=== PATIENT | male | born 1960 | race Caucasian/White ===

== ENCOUNTER 2018-09-08 10:10 | Emergency (ER) | payer MEDICAID ==
[2018-09-08] MEDS ORDERED: Naproxen 550 mg Tab PO STA (11:31)
[2018-09-08] MEDS ORDERED: Naproxen 550 mg Tab PO ONE (11:38)
[2018-09-08 12:11] LABS: SQUAMOUS EPITHIAL < 1 /hpf (0-5); URINE BILIRUBIN NEGATIVE (NEGATIVE); URINE BLOOD 1+ (NEGATIVE); URINE CLARITY Clear (Clear); URINE COLOR Yellow (YELLOW); URINE GLUCOSE (UA) NORMAL (Normal); URINE LEUKOCYTE ESTERASE NEG Leu/uL (Negative); URINE PROTEIN NEGATIVE (NEGATIVE)
[2018-09-08] MEDS ORDERED: Sodium Chloride 0.9% 1,000 ML IV ONE (12:16)
[2018-09-08 12:32] VITALS: RESP 20
[2018-09-08 12:48] LABS: BASO % 0.8 % (0.0-2.0); EOS # 0.1 K/uL (0.0-0.7); EOS % 2.5 % (0.0-4.0); HEMOGLOBIN 13.2 g/dL (12.0-18.0); LYMPH % 38.4 % (20.0-40.0); MEAN CORPUSCULAR HEMOGLOBIN 30.7 pg (27.0-31.0); MEAN CORPUSCULAR HGB CONC 34.4 g/dL (33.0-37.0); MEAN PLATELET VOLUME 8.5 fL (7.2-11.7); MONO # 0.5 K/uL (0.0-0.8); NEUT # 2.5 K/uL (1.8-7.0); NEUT % 48.3 % (50.0-75.0); NRBC % 0.2 % (0.0-2.0); RBC 4.28 Mil/uL (4.40-5.90); RED CELL DISTRIBUTION WIDTH 14.3 % (11.5-14.5); WHITE BLOOD COUNT 5.2 K/uL (4.8-10.8)
[2018-09-08 12:49] LABS: MEAN CELL VOLUME 89.3 fL (80.0-94.0)
[2018-09-08 13:01] LABS: ALB/GLOB RATIO 0.9 (1.0-2.1); ALBUMIN 3.9 g/dL (3.5-5.0); ALT/SGPT 53 U/L (21-72); AST/SGOT 59 U/L (17-59); BLOOD UREA NITROGEN 15 mg/dL (9-20); CALCIUM 8.9 mg/dl (8.6-10.4); GFR NON-AFRICAN AMERICAN > 60
[2018-09-08] MEDS ORDERED: Sodium Chloride 0.9% 1,000 ML ONE (13:11)
--- NOTE | 2018-09-08 13:32 | CT ---
PROCEDURE: CT Abdomen and Pelvis without Oral or IV contrast. HISTORY: RIGHT LOW BACK, RLQ PAIN, R/O KIDNEY STONE COMPARISON: None available. TECHNIQUE: Contiguous axial images of the abdomen and pelvis. No oral or IV contrast administered. Coronal and Sagittal reformats generated and reviewed. Radiation dose: Total exam DLP = 1067.05 mGy-cm. This CT exam was performed using one or more of the following dose reduction techniques: Automated exposure control, adjustment of the mA and/or kV according to patient size, and/or use of iterative reconstruction technique. FINDINGS: There is limited evaluation of the solid organs without the administration of IV contrast. LOWER THORAX: No visible consolidation, pleural effusion, or pneumothorax. LIVER: Hepatomegaly. Nodular hepatic contour. GALLBLADDER AND BILE DUCTS: Cholelithiasis. Gallbladder wall calcification. PANCREAS: Unremarkable unenhanced appearance. SPLEEN: Splenomegaly. ADRENALS: Unremarkable unenhanced appearance. KIDNEYS AND URETERS: No hydronephrosis or obstructing renal calculus. 11 mm left lower pole calculus. BLADDER: The urinary bladder appears unremarkable. REPRODUCTIVE: Unremarkable. APPENDIX: The appendix appears within normal limits of caliber. No secondary signs of acute appendicitis. BOWEL: The stomach is nondistended. Lack of oral contrast limits evaluation for bowel pathology. The bowel loops appear within normal limits of caliber without evidence of intestinal obstruction. PERITONEUM: No significant free fluid. No definite free air. LYMPH NODES: No bulky lymphadenopathy identified. VASCULATURE: Mild atherosclerotic calcification of the aorta present. No aortic aneurysm. BONES: Mild degenerative changes. OTHER FINDINGS: Fat containing right inguinal hernia. IMPRESSION: Cholelithiasis. 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 Nonobstructing 11 mm left lower pole renal calculus. Hepatomegaly. Nodular hepatic contour. Correlate clinically for cirrhosis. Splenomegaly. Fat containing right inguinal hernia.
[2018-09-08 13:59] VITALS: PULSE 54
--- NOTE | 2018-09-08 15:06 | C.PDOC ---
History Of Present Illness 58 year old male presents to the ED for evaluation of right-sided lower back pain that has been radiating to his anterior abdomen for 3 days. Patient states his pain is constant. He denies associated fever, chills, vomiting, diarrhea, dysuria, hematuria. Time Seen by Provider: 09/08/18 10:42 Chief Complaint (Nursing): Back Pain History Per: Patient History/Exam Limitations: no limitations Onset/Duration Of Symptoms: Days (3) Current Symptoms Are (Timing): Still Present Quality Of Discomfort: "Pain" Previous Symptoms: Back Pain Associated Symptoms: denies: Incontinence, New Weakness, New Numbness Additional History Per: Patient Past Medical History Reviewed: Historical Data, Nursing Documentation, Vital Signs Vital Signs: Last Vital Signs Temp 98.9 F 09/08/18 13:58 Pulse 54 L 09/08/18 13:58 Resp 20 09/08/18 13:58 BP 120/73 09/08/18 13:58 Pulse Ox 99 09/08/18 13:58 - Medical History PMH: No Chronic Diseases Denies: Diabetes Surgical History: No Surg Hx Family History: States: Unknown Family Hx - Social History Hx Tobacco Use: Yes Hx Alcohol Use: Yes (denies) Hx Substance Use: Yes - Immunization History Hx Tetanus Toxoid Vaccination: No Hx Influenza Vaccination: No Hx Pneumococcal Vaccination: No Review Of Systems Constitutional: Negative for: Fever, Chills Gastrointestinal: Positive for: Abdominal Pain (anterior ). Negative for: Vomiting, Diarrhea Genitourinary: Negative for: Dysuria, Hematuria Musculoskeletal: Positive for: Back Pain (right-sided ) Physical Exam - Physical Exam Appears: Non-toxic, No Acute Distress, Other (comfortable ) Skin: Normal Color, Warm, Dry Head: Atraumatic, Normacephalic Eye(s): bilateral: Normal Inspection Oral Mucosa: Moist Neck: Supple Chest: Symmetrical, No Deformity, No Tenderness Cardiovascular: Rhythm Regular, No Murmur Respiratory: Normal Breath Sounds, No Rales, No Rhonchi, No Wheezing Gastrointestinal/Abdominal: Soft, No Tenderness, No Guarding, No Rebound Back: Paraspinal Tenderness (right-sided, lumbar ) Extremity: Normal ROM, Capillary Refill (less than 2 seconds ) Neurological/Psych: Oriented x3, Normal Speech, Normal Cognition Gait: Steady ED Course And Treatment - Laboratory Results Result Diagrams: 09/08/18 12:35 09/08/18 12:35 O2 Sat by Pulse Oximetry: 99 (on RA) Pulse Ox Interpretation: Normal - CT Scan/US CT A/P Other Rad Studies (CT/US): Read By Radiologist, Radiology Report Reviewed CT/US Interpretation: PROCEDURE: CT Abdomen and Pelvis without Oral or IV contrast. HISTORY: RIGHT LOW BACK, RLQ PAIN, R/O KIDNEY STONE. COMPARISON: None available. TECHNIQUE: Contiguous axial images of the abdomen and pelvis. No oral or IV contrast administered. Coronal and Sagittal reformats generated an d reviewed. Radiation dose: Total exam DLP = 1067.05 mGy-cm. This CT exam was performed using one or more of the following dose reduction techniques: Automated exposure control, adjustment of the mA and/or kV according to patient size, and/or use of iterative reconstruction technique. FINDINGS: There is limited evaluation of the solid organs without the administration of IV contrast. LOWER THORAX: No visible consolidation, pleural effusion, or pneumothorax. LIVER: Hepatomegaly. Nodular hepatic contour. GALLBLADDER AND BILE DUCTS: Cholelithiasis. Gallbladder wall calcification. PANCREAS: Unremarkable unenhanced appearance. SPLEEN: Splenomegaly. ADRENALS: Unremarkable unenhanced appearance. KIDNEYS AND URETERS: No hydronephrosis or obstructing renal calculus. 11 mm left lower pole calculus. BLADDER: The urinary bladder appears unremarkable. REPRODUCTIVE: Unremarkable. APPENDIX: The appendix appears within normal limits of caliber. No secondary signs of acute appendicitis. BOWEL: The stomach is nondistended. Lack of oral contrast limits evaluation for bowel pathology. The bowel loops appear within normal limits of caliber without evidence of intestinal obstruction. PERITONEUM: No significant free fluid. No definite free air. LYMPH NODES: No bulky lymphadenopathy identified. VASCULATURE: Mild atherosclerotic calcification of the aorta present. No aortic aneurysm. BONES: Mild degenerative changes. OTHER FINDINGS: Fat containing right inguinal hernia. IMPRESSION: Cholelithiasis. 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 Nonobstructing 11 mm left lower pole renal calculus. Hepatomegaly. Nodular hepatic contour. Correlate clinically for cirrhosis. Splenomegaly. Fat containing right inguinal hernia. Progress Note: Bloodwork, urinalysis, CT A/P ordered and reviewed. Naproxen PO, Flexeril PO and IV Fluids given. Disposition Counseled Patient/Family Regarding: Studies Performed, Diagnosis, Need For F ollowup, Rx Given - Disposition Referrals: [facility] [Outside] Disposition: HOME/ ROUTINE Disposition Time: 15:05 Condition: STABLE Additional Instructions: FOLLOW UP WITH YOUR DOCTOR OR CLINIC IN 1-2 DAYS USE MEDICATIONS NEEDED RETURN TO EMERGENCY ROOM IF SYMPTOMS WORSEN Prescriptions: Cyclobenzaprine [Flexeril] 10 mg PO BID PRN #15 tab PRN Reason: Muscle Spasm Naproxen 375 mg PO BID PRN #20 tablet PRN Reason: pain Instructions: Low Back Pain (DC) Forms: [email or web address] (Indonesian) Print Language: KINYARWANDA - POA Present On Arrival: None - Clinical Impression Clinical Impression: Low back pain, Gallstones, Hepatomegaly, Splenomegaly - Scribe Statement The provider has reviewed the documentation as recorded by the Scribe (rTi Jurado) Provider Attestation: All medical record entries made by the Scribe were at my direction and personally dictated by me. I have reviewed the chart and agree that the record accurately reflects my personal performance of the history, physical exam, medical decision making, and the department course for this patient. I have also personally directed, reviewed, and agree with the discharge instructions and disposition.
[2018-09-08 15:29] VITALS: BP 131/79; TEMP 98.2
[2018-09-08 23:19] VITALS: O2SAT 99
== END 2018-09-08 15:32 | disposition home or self-care (01) ==
LOC: C.ER 10:10
DX: K80.80 Other cholelithiasis without obstruction (principal); R16.2 Hepatomegaly with splenomegaly, not elsewhere classified; M54.5 Low back pain
CPT/HCPCS: 74176; 80053; 81001; 85025; 96360; 99284; J7030

== ENCOUNTER 2018-11-13 11:34 | Emergency (ER) | payer MEDICAID ==
[2018-11-13 11:55] VITALS: O2SAT 100
[2018-11-13] MEDS ORDERED: Sodium Chloride 0.9% 1,000 ML IV ONE (13:50)
[2018-11-13 13:51] LABS: SQUAMOUS EPITHIAL 5 /hpf (0-5); URINE BACTERIA RARE (<OCC); URINE BILIRUBIN NEGATIVE (NEGATIVE); URINE BLOOD 3+ (NEGATIVE); URINE CLARITY Hazy (Clear); URINE COLOR Yellow (YELLOW); URINE GLUCOSE (UA) NORMAL (Normal); URINE LEUKOCYTE ESTERASE NEG Leu/uL (Negative); URINE PROTEIN NEGATIVE (NEGATIVE)
--- NOTE | 2018-11-13 13:54 | C.PDOC ---
History Of Present Illness 58 year old male presents to the ED for evaluation of left flank pain for 3 days. The patient states he noticed blood in his urine. Denies fever, chills, nausea, vomiting, diarrhea, and any other associated symptoms. Chief Complaint (Nursing): Male Genitourinary History Per: Patient History/Exam Limitations: no limitations Onset/Duration Of Symptoms: Days (3), Gradual Pain Scale Rating Of: 6 Quality Of Discomfort: Dull, Aching Associated Symptoms: denies: Fever, Chills, Nausea, Vomiting, Diarrhea Alleviating Factors: None Recent travel outside of the [place]: No Past Medical History Reviewed: Historical Data, Nursing Documentation, Vital Signs Vital Signs: Last Vital Signs Temp 98.3 F 11/13/18 11:51 Pulse 81 11/13/18 11:51 Resp 18 11/13/18 11:51 BP 163/82 H 11/13/18 11:51 Pulse Ox 100 11/13/18 11:51 - Medical History PMH: No Chronic Diseases Denies: Diabetes Family History: States: Unknown Family Hx Denies: IA, Hypertension - Social History Hx Tobacco Use: Yes Hx Alcohol Use: Yes (denies) Hx Substance Use: Yes - Immunization History Hx Tetanus Toxoid Vaccination: No Hx Influenza Vaccination: No Hx Pneumococcal Vaccination: No Review Of Systems Except As Marked, All Systems Reviewed And Found Negative. Constitutional: Negative for: Fever Eyes: Negative for: Pain ENT: Negative for: Ear Pain Cardiovascular: Negative for: Chest Pain Respiratory: Negative for: Cough Gastrointestinal: Positive for: Abdominal Pain Genitourinary: Positive for: Hematuria Musculoskeletal: Negative for: Neck Pain Neurological: Negative for: Weakness Physical Exam - Physical Exam Appears: Well, Non-toxic Skin: Normal Color, Warm Head: Atraumatic, Normacephalic Eye(s): bilateral: Normal Inspection, PERRL, EOMI Nose: Normal Oral Mucosa: Moist Tongue: Normal Appearing Lips: Normal Appearing Throat: Normal Neck: Normal, Normal ROM Lymphatic: Deferred Chest: Symmetrical Cardiovascular: Rhythm Regular Respiratory: Normal Breath Sounds, No Rales, No Rhonchi, No Wheezing Gastrointestinal/Abdominal: Soft, Tenderness (Left flank CVA tenderness) Back: CVA Tenderness Extremity: Normal ROM Extremity: Bilateral: Atraumatic Pulses: Left Carotid: Normal, Right Carotid: Normal Neurological/Psych: Oriented x3, Normal Speech, Normal Cognition Gait: Steady ED Course And Treatment - Laboratory Results Result Diagrams: 11/13/18 14:05 11/13/18 14:05 O2 Sat by Pulse Oximetry: 100 (RA) Pulse Ox Interpretation: Normal - CT Scan/US CT ABD & Pelvis Other Rad Studies (CT/US): Read By Radiologist CT/US Interpretation: FINDINGS: LOWER THORAX: Unremarkable. LIVER: Nodular hepatic contour. No gross lesion or ductal dilatation. GALLBLADDER AND BILE DUCTS: Depending cholelithiasis. Gallbladder wall calcification. PANCREAS: Unremarkable. No gross lesion or ductal dilatation. SPLEEN: Stable splenomegaly. ADRENALS: Unremarkable. No mass. KIDNEYS AND URETERS: 11 mm obstructive left ureteropelvic junction calculus causing mild hydronephrosis. No solid mass. VASCULATURE: Unremarkable. No aortic aneurysm. No aortic atherosclerotic calcification or mural plaque present. BOWEL: Unremarkable. No obstruction. No gross mural thickening. APPENDIX: No findings to suggest acute appendicitis. PERITONEUM: Moderate right fat containing inguinal hernia also containing loop of nonobstructive bowel. No free fluid. No free air. LYMPH NODES: Unremarkable. No enlarged lymph nodes. BLADDER: Unremarkable. REPROD UCTIVE: Unremarkable. BONES: No acute fracture. OTHER FINDINGS: None. IMPRESSION: Obstructive 11 mm left ureteropelvic junction calculus causing mild hydronephrosis. Additional findings as above. Reassessment Condition: Improved (pain resolved) Medical Decision Making Medical Decision Making: Initial plan: -CT ABD & Pelvis w/o PO or IV Contrast -Blood sent -Urinalysis -Toradol Progress/Update: 3:13pm : Urologist sales operations coordinator, Dr. Jeffery attempted to contact, left message on cell phone voicemail. 3:23pm : Discussed case with Dr. Jeffery who recommended labs for him in his office on thursday. Patient discharged on flomax and pain medication. Disposition Discussed With : Timur Jeffery Doctor Will See Patient In The: Office Counseled Patient/Family Regarding: Studies Performed, Diagnosis, Need For Followup, Rx Given - Disposition Referrals: Timur Jeffery MD [Staff Provider] - Disposition: HOME/ ROUTINE Disposition Time: 15:29 Condition: STABLE Additional Instructions: call Dr Latia Ding cell [phone] for follow up on Thursday. Prescriptions: Ketorolac Tromethamine [Toradol] 0 mg PO TID #9 tab Ondansetron ODT [Zofran ODT] 4 mg PO TID #12 odt oxyCODONE/Acetaminophen [Percocet 5/325 mg Tab] 1 ea PO TID #9 tab Tamsulosin HCl [Flomax] 0.4 mg PO DAILY #14 cap.er.24h Instructions: Renal Colic Forms: [facility] (British), Gen Discharge Inst Tunisian, General Discharge Instructions - POA Present On Arrival: None - Clinical Impression Clinical Impression: Renal colic on left side - Scribe Statement The provider has reviewed the documentation as recorded by the Scribe (Lian Andrea) Provider Attestation: All medical record entries made by the Scribe were at my direction and personally dictated by me. I have reviewed the chart and agree that the record accurately reflects my personal performance of the history, physical exam, medical decision making, and the department course for this patient. I have also personally directed, reviewed, and agree with the discharge instructions and disposition.
[2018-11-13 14:12] LABS: BASO # 0.1 K/uL (0.0-0.2); EOS # 0.1 K/uL (0.0-0.7); EOS % 1.1 % (0.0-4.0); LYMPH # 1.5 K/uL (1.0-4.3); LYMPH % 22.5 % (20.0-40.0); MEAN CORPUSCULAR HEMOGLOBIN 31.3 pg (27.0-31.0); MEAN PLATELET VOLUME 8.7 fL (7.2-11.7); MONO # 0.7 K/uL (0.0-0.8); MONO % 10.5 % (0.0-10.0); NEUT # 4.2 K/uL (1.8-7.0); NEUT % 64.9 % (50.0-75.0); NRBC % 0.1 % (0.0-2.0); RBC 4.47 Mil/uL (4.40-5.90); RED CELL DISTRIBUTION WIDTH 14.4 % (11.5-14.5); WHITE BLOOD COUNT 6.5 K/uL (4.8-10.8)
[2018-11-13 14:22] LABS: ALBUMIN 4.1 g/dL (3.5-5.0); ALT/SGPT 58 U/L (21-72); AST/SGOT 74 U/L (17-59); BLOOD UREA NITROGEN 23 mg/dL (9-20); CALCIUM 8.5 mg/dl (8.6-10.4); GFR NON-AFRICAN AMERICAN > 60; LIPASE 58 U/L (23-300)
--- NOTE | 2018-11-13 15:05 | CT ---
Date of service: 11/13/2018 PROCEDURE: CT Abdomen and Pelvis without intravenous contrast HISTORY: abd pain COMPARISON: CT scan of the abdomen pelvis dated 09/08/2018. TECHNIQUE: Contiguous images were obtained from the domes of the diaphragms to the upper thighs without the administration of intravenous contrast. Oral contrast was not administered. Radiation dose: Total exam DLP = 1098.21 mGy-cm. This CT exam was performed using one or more of the following dose reduction techniques: Automated exposure control, adjustment of the mA and/or kV according to patient size, and/or use of iterative reconstruction technique. FINDINGS: LOWER THORAX: Unremarkable. LIVER: Nodular hepatic contour. No gross lesion or ductal dilatation. GALLBLADDER AND BILE DUCTS: Depending cholelithiasis. Gallbladder wall calcification. PANCREAS: Unremarkable. No gross lesion or ductal dilatation. SPLEEN: Stable splenomegaly ADRENALS: Unremarkable. No mass. KIDNEYS AND URETERS: 11 mm obstructive left ureteropelvic junction calculus causing mild hydronephrosis. No solid mass. VASCULATURE: Unremarkable. No aortic aneurysm. No aortic atherosclerotic calcification or mural plaque present. BOWEL: Unremarkable. No obstruction. No gross mural thickening. APPENDIX: No findings to suggest acute appendicitis. PERITONEUM: Moderate right fat containing inguinal hernia also containing loop of nonobstructive bowel. No free fluid. No free air. LYMPH NODES: Unremarkable. No enlarged lymph nodes. BLADDER: Unremarkable. REPRODUCTIVE: Unremarkable. BONES: No acute fracture. OTHER FINDINGS: None. IMPRESSION: Obstructive 11 mm left ureteropelvic junction calculus causing mild hydronephrosis. Additional findings as above.
[2018-11-13 16:02] VITALS: BP 118/73; PULSE 77; RESP 20; TEMP 98
== END 2018-11-13 16:06 | disposition home or self-care (01) ==
LOC: C.ER 11:34
DX: N13.2 Hydronephrosis with renal and ureteral calculous obstruction (principal)
CPT/HCPCS: 74176; 80053; 81001; 83690; 85025; 96361; 96374; 99285; J1885; J7030

== ENCOUNTER 2019-02-16 08:51 | Observation (INO) | payer MEDICAID ==
[2019-02-16 09:40] LABS: URINE BILIRUBIN NEGATIVE (NEGATIVE); URINE BLOOD 3+ (NEGATIVE); URINE CLARITY Hazy (Clear); URINE COLOR Amber (YELLOW); URINE GLUCOSE (UA) NORMAL (Normal); URINE LEUKOCYTE ESTERASE 1+ Leu/uL (Negative); URINE PROTEIN 2+ mg/dL (NEGATIVE); URINE UROBILINOGEN NORMAL mg/dL (0.2-1.0)
[2019-02-16] MEDS ORDERED: Sodium Chloride 0.9% 1,000 ML IV ONE (10:05)
[2019-02-16] MEDS ORDERED: Sodium Chloride 0.9% 1,000 ML ONE (10:19)
[2019-02-16 10:21] LABS: BASO % 0.2 % (0.0-2.0); EOS # 0.1 K/uL (0.0-0.7); EOS % 2.4 % (0.0-4.0); HEMOGLOBIN 13.1 g/dL (12.0-18.0); LYMPH # 1.9 K/uL (1.0-4.3); LYMPH % 40.1 % (20.0-40.0); MEAN CORPUSCULAR HEMOGLOBIN 30.2 pg (27.0-31.0); MEAN CORPUSCULAR HGB CONC 34.1 g/dL (33.0-37.0); MONO # 0.5 K/uL (0.0-0.8); MONO % 9.7 % (0.0-10.0); NEUT # 2.2 K/uL (1.8-7.0); NEUT % 47.6 % (50.0-75.0); RBC 4.35 Mil/uL (4.40-5.90); RED CELL DISTRIBUTION WIDTH 13.6 % (11.5-14.5); WHITE BLOOD COUNT 4.7 K/uL (4.8-10.8)
[2019-02-16 10:23] LABS: MEAN CELL VOLUME 88.6 fL (80.0-94.0)
[2019-02-16 10:28] LABS: ALB/GLOB RATIO 1.1 (1.0-2.1); ALBUMIN 4.3 g/dL (3.5-5.0); ALT/SGPT 43 U/L (21-72); AST/SGOT 53 U/L (17-59); BLOOD UREA NITROGEN 18 mg/dL (9-20); CALCIUM 8.9 mg/dl (8.6-10.4); GFR NON-AFRICAN AMERICAN > 60
--- NOTE | 2019-02-16 11:39 | CT ---
Date of service: 02/16/2019 PROCEDURE: CT Abdomen and Pelvis without intravenous contrast HISTORY: hematuria with flank pain - h/o kidney stones COMPARISON: Abdomen pelvis CT without contrast 11/13/2018. TECHNIQUE: Helical CT of the abdomen and pelvis was performed without oral or intravenous contrast as per referring physician request. Coronal and sagittal reformats were generated.. Radiation dose: Total exam DLP = 1396.3 mGy-cm. This CT exam was performed using one or more of the following dose reduction techniques: Automated exposure control, adjustment of the mA and/or kV according to patient size, and/or use of iterative reconstruction technique. FINDINGS: LOWER THORAX: Incidental upper limits of normal dilatation of the ascending thoracic aorta up to 3.9 cm with the aortic root measuring 3.5 cm. No infiltrate, pleural or pericardial effusion identified. LIVER: Nodular patent contour reiterated, suspicious for cirrhosis. No gross mass identified in this unenhanced exam. GALLBLADDER AND BILE DUCTS: Distended porcelain gallbladder again identified with numerous calculi layering in the dependent portion of the fundus and neck. No pericholecystic fluid collection appreciable. PANCREAS: Unremarkable. No gross lesion or ductal dilatation. SPLEEN: Splenomegaly reiterated up to 17.3 cm once again, no gross interval change. ADRENALS: Unremarkable. No mass. KIDNEYS AND URETERS: Persistent mild hydronephrosis appreciated now with proximal to mid left moderate hydroureter caused by the same 11 mm obstructing calculus now identified more distally, at the approximate S1 sacral there nonspecific mild dilatation of the distal ureteral segment as well though no ureteral calculus is seen associated. This may be a function of normal peristalsis. Clinically correlate further. Borderline left perinephric changes. Subtle left periureteral changes are identified. No right hydronephrosis or hydroureter. No right-sided radiodense urolithiasis identified nor additional left-sided radiodense urolithiasis. No definitive contour abnormality to suggest parenchymal mass bilaterally. VASCULATURE: Unremarkable. No aortic aneurysm. No aortic atherosclerotic calcification or mural plaque present. BOWEL: Unremarkable. No obstruction. No gross mural thickening. APPENDIX: Unremarkable. Normal appendix. PERITONEUM: Unremarkable. No free fluid. No free air. LYMPH NODES: Unremarkable. No enlarged lymph nodes. BLADDER: Limited urinary bladder distention is appreciated with bladder otherwise unremarkable. REPRODUCTIVE: Unremarkable. BONES: No acute fracture. OTHER FINDINGS: None. IMPRESSION: Prior 11 mm left UPJ calculus is now identified at the distal left ureter at the approximate S1 sacral level with persistent mild left hydronephrosis and interval moderate left hydroureter. Periureteral reactive change are identified but are minimal at perinephric space. Mild dilatation of the distal left ureter is appreciated after the calculus potentially is a function of normal peristalsis though this is indeterminate. No additional radiodense urolithiasis involving the left ureter with urinary bladder mildly distended but otherwise unremarkable. Unremarkable, stable appearing right kidney. Intramural gallbladder calcifications are reiterated with gallbladder distension, suggestive of porcelain gallbladder. Numerous calculi are identified in the dependent gallbladder including the neck. Stable appearance overall.
--- NOTE | 2019-02-16 13:22 | CP.PCM.HP ---
<Andrew Noriega - Last Filed: 02/16/19 15:11> History of Present Illness - History of Present Illness History of Present Illness: CC: Hematuria HPI: Patient is a 58 year old male with no known medical history (as per patient), however as per EMR, he does have hx of hepatitis C and Heroin use (last use was 5 years ago). Patient presents to the ED with complaints of gross hematuria that has been ongoing for 3-4 days with left flank patient that started yesterday. Patient states that he noted left flank pain yesterday that worsens with movement and mildly alleviated with advil. Also, patient reports lower abdominal discomfort that is exacerbated with urination. Patient states that he took a pill that he was prescribed back in October last night and this morning; patient does not recall the name of the pill. Patient denies any symptoms of fever, chills, nausea, vomiting, shortness of breath, chest pain, palpitations or hematochezia. Patient was seen in the ED for similar complaints in October and was discharged with a referral to urology, Dr. Timur weinberg Code Status: Full code PMD: None PMHx: As per EMR, hepatitis C positive PSHx: Denies FHx: - Mother: DM, HTN ( 10 years ago) - Father: Colon cancer, ; last year) Medications: Methadone 65mg PO daily; at [facility], Allergies: NKDA Social Hx: Lives alone, works part-time at a car shop. Admits to tobacco use > 20years (1/2PPD), heroin use for 10 years (via IV; few bags per day; last use 5 years ago); former use of ETOH Present on Admission - Present on Admission Any Indicators Present on Admission: No Review of Systems - Constitutional Constitutional: Headache. absent: Chills, Fever - EENT Eyes: Blurred Vision, Change in Vision Nose/Mouth/Throat: absent: Nasal Discharge - Cardiovascular Cardiovascular: absent: Chest Pain, Chest Pain at Rest, Dyspnea, Palpitations - Respiratory Respiratory: absent: Dyspnea - Gastrointestinal Gastrointestinal: Abdominal Pain. absent: Bloating, Constipation, Cramping, Diarrhea, Hematemesis, Hematochezia, Nausea, Vomiting - Genitourinary Genitourinary: Flank Pain, Hematuria, Hx Renal/Bladder Calculi. absent: Pyuria, Nocturia, Urinary Incontinence, Urinary Frequency, Urinary Hesitance, Urinary Urgency - Musculoskeletal Musculoskeletal: absent: Back Pain - Neurological Neurological: absent: Dizziness, Weakness - Psychiatric Psychiatric: absent: Anxiety - Endocrine Endocrine: absent: Fatigue, Palpitations Past Patient History - Infectious Disease Hx of Infectious Diseases: None - Past Social History Smoking Status: Heavy Smoker > 10 Cigarettes Daily - RENAL Hx Kidney Stones: Yes - GENITOURINARY/GYNECOLOGICAL Other/Comment: Hx of kidney stones - PSYCHIATRIC Hx Substance Use: Yes - SURGICAL HISTORY Hx Surgeries: No - ANESTHESIA Hx Anesthesia: Yes Hx Anesthesia Reactions: No Hx Malignant Hyperthermia: No Meds Allergies/Adverse Reactions: Allergies Allergy/AdvReac Type Severity Reaction Status Date / Time No Known Allergies Allergy Verified 02/16/19 09:05 Physical Exam - Constitutional Appears: Non-toxic, No Acute Distress - Head Exam Head Exam: ATRAUMATIC, NORMAL INSPECTION - Eye Exam Eye Exam: EOMI, Normal appearance - ENT Exam ENT Exam: Mucous Membranes Moist - Respiratory Exam Respiratory Exam: Clear to Auscultation Bilateral, NORMAL BREATHING PATTERN. absent: Decreased Breath Sounds, Prolonged Expiratory Phase, Rales, Rhonchi, Wheezes, Respiratory Distress - Cardiovascular Exam Cardiovascular Exam: REGULAR RHYTHM, +S1, +S2. absent: Tachycardia, Clicks, Diastolic murmur, Irregular Rhythm, Systolic Murmur - GI/Abdominal Exam GI & Abdominal Exam: Normal Bowel Sounds, Soft. absent: Diminished Bowel Sounds, Distended, Firm, Guarding, Hernia, Tenderness - Extremities Exam Extremities exam: Positive for: normal inspection. Negative for: calf tenderness, pedal edema - Back Exam Back exam: NORMAL INSPECTION. absent: CVA tenderness (L), CVA tenderness (R) Additional comments: Negative llyod test, which can be due to prior analgesic before the encounter - Neurological Exam Neurological exam: Alert, CN II-XII Intact, Normal Gait, Oriented x3 - Psychiatric Exam Psychiatric exam: Normal Affect - Skin Skin Exam: Normal Color Results - Vital Signs Recent Vital Signs: Last Vital Signs Temp 97.8 F 02/16/19 13:14 Pulse 52 L 02/16/19 13:14 Resp 20 02/16/19 13:14 BP 146/78 02/16/19 13:14 Pulse Ox 97 02/16/19 13:14 - Labs Result Diagrams: 02/16/19 10:12 02/16/19 10:12 Labs: Laboratory Results - last 24 hr 02/16/19 02/16/19 02/16/19 09:25 10:12 10:12 WBC 4.7 L RBC 4.35 L Hgb 13.1 Hct 38.5 MCV 88.6 D MCH 30.2 MCHC 34.1 RDW 13.6 Plt Count 79 L MPV 8.0 Neut % (Auto) 47.6 L Lymph % (Auto) 40.1 H [place] % (Auto) 9.7 Eos % (Auto) 2.4 Baso % (Auto) 0.2 Neut # (Auto) 2.2 Lymph # (Auto) 1.9 [place] # (Auto) 0.5 Eos # (Auto) 0.1 Baso # (Auto) 0.0 Differential Comment Sodium 137 Potassium 4.5 Chloride 99 Carbon Dioxide 34 H Anion Gap 9 L BUN 18 Creatinine 1.1 Est GFR ( Amer) > 60 Est GFR (Non-Af Amer) > 60 Random Glucose 100 Calcium 8.9 Total Bilirubin 0.5 AST 53 ALT 43 Alkaline Phosphatase 86 Total Protein 8.4 H Albumin 4.3 Globulin 4.1 H Albumin/Globulin Ratio 1.1 Urine Color Margi Urine Clarity Hazy Urine pH 6.0 Ur Specific [place] 1.016 Urine Protein 2+ H Urine Glucose (UA) Normal Urine Ketones Negative Urine Blood 3+ H Urine Nitrate Negative Urine Bilirubin Negative Urine Urobilinogen Normal Ur Leukocyte Esterase 1+ H Urine WBC (Auto) 16 H Urine RBC (Auto) 8427 H Assessment & Plan (1) Renal calculus or stone Assessment and Plan: Consultation: - Urology, Dr. Mahoney---> help appreciated * management as per recommendation Vitals/Labs/imaging: -Afebrile - No leukocytosis - No ARIADNA - Abdomen/Pelvis CT without IV contrast: Prior 11 mm left UPJ calculus is now identified at the distal left ureter at the approximate S1 sacral level with persistent mild left hydronephrosis and interval moderate left hydroureter. Periureteral reactive change are identified but are minimal at perinephric sp david. Mild dilatation of the distal left ureter is appreciated after the calculus potentially is a function of normal peristalsis though this is indeterminate. No additional radiodense urolithiasis involving the left ureter with urinary bladder mildly distended but otherwise unremarkable. Unremarkable, stable appearing right kidney. Management: NS @ 145cc/hr; maintenance fluid Toradol 15mg IV Q6H PRN Toradol 30mg IV Q6H PRN Status: Acute (2) Hematuria Assessment and Plan: Secondary to nephrolithiasis NS @ 145cc/hr Status: Acute (3) Porcelain gallbladder Assessment and Plan: Consultation: * General Surgery, Thomas Vela - Management as per recommendation Imaging: Abdomen/Pelvis CT: Intramural gallbladder calcifications are reiterated with gallbladder distension, suggestive of porcelain gallbladder. Numerous calculi are identified in the dependent gallbladder including the neck Status: Acute (4) History of heroin abuse Assessment and Plan: Last use: 5 years ago Has been attending [facility] methadone clinic for the past 5 years * Methadone 65mg PO daily as per patient * Last dose received, am of 02/16/19 * Please call Sien in the m, , to confirm dose. I called twice and no answer Status: Acute (5) Tobacco use Assessment and Plan: Educated on tobacco cessation Refuses nictoine patch at this time Status: Acute (6) Hepatitis C antibody positive in blood Assessment and Plan: Hep C antibody reactive (01/03/15) As per patient, he was never treated F/U hepatitis panel and Hep C viral RNA Qual Status: Acute (7) Prophylactic measure Assessment and Plan: DVT: SCDs, no anticoagulation at this time due gross hematuria and low platelet GI: Not indicated All plans and management discussed with Dr. Hinojosa Status: Acute <Patricia Hinojosa - Last Filed: 02/17/19 16:27> Results - Vital Signs Recent Vital Signs: Last Vital Signs Temp 98.3 F 02/17/19 15:13 Pulse 65 02/17/19 15:13 Resp 20 02/17/19 15:13 BP 141/92 H 02/17/19 15:13 Pulse Ox 98 02/17/19 15:13 - Labs Result Diagrams: 02/17/19 07:33 02/17/19 07:33 Labs: Laboratory Results - last 24 hr 02/16/19 02/16/19 02/17/19 16:58 16:58 07:33 WBC 4.1 L RBC 4.11 L Hgb 12.6 Hct 36.7 MCV 89.3 MCH 30.8 MCHC 34.5 RDW 13.9 Plt Count 75 L MPV 8.4 Neut % (Auto) 46.0 L Lymph % (Auto) 41.0 H [place] % (Auto) 9.5 Eos % (Auto) 3.0 Baso % (Auto) 0.5 Neut # (Auto) 1.9 Lymph # (Auto) 1.7 [place] # (Auto) 0.4 Eos # (Auto) 0.1 Baso # (Auto) 0.0 PT 14.5 H INR 1.3 APTT 39.0 H Sodium Potassium Chloride Carbon Dioxide Anion Gap BUN Creatinine Est GFR ( Amer) Est GFR (Non-Af Amer) Random Glucose Calcium Phosphorus Magnesium Total Bilirubin AST ALT Alkaline Phosphatase Total Protein Albumin Globulin Albumin/Globulin Ratio Hepatitis A IgM Ab Negative Hep Bs Antigen Negative Hep B Core IgM Ab Negative Hepatitis C Antibody Reactive 02/17/19 07:33 WBC RBC Hgb Hct MCV MCH MCHC RDW Plt Count MPV Neut % (Auto) Lymph % (Auto) [place] % (Auto) Eos % (Auto) Baso % (Auto) Neut # (Auto) Lymph # (Auto) [place] # (Auto) Eos # (Auto) Baso # (Auto) PT INR APTT Sodium 136 Potassium 5.0 Chloride 102 Carbon Dioxide 28 Anion Gap 12 BUN 21 H Creatinine 1.0 Est GFR ( Amer) > 60 Est GFR (Non-Af Amer) > 60 Random Glucose 113 H Calcium 8.3 L Phosphorus 3.7 Magnesium 2.0 Total Bilirubin 0.4 AST 53 ALT 41 Alkaline Phosphatase 94 Total Protein 7.4 Albumin 3.8 Globulin 3.6 Albumin/Globulin Ratio 1.1 Hepatitis A IgM Ab Hep Bs Antigen Hep B Core IgM Ab Hepatitis C Antibody Attending/Attestation - Attestation I have personally seen and examined this patient.: Yes I have fully participated in the care of the patient.: Yes I have reviewed all pertinent clinical information: Yes Notes (Text): Seen and examined by me. patient is here for hematuria and left side flank. Has history of hep c and drug use on Methadone. 1.Obstructing left ureteric stone with Hydronephrosis.nephrology consult,follow urine culture 2.Porcelain gallbladder. Has risk of malignancy. we will get surgery consult 3.Hep c 4.Drug abuse on methadone
--- NOTE | 2019-02-16 16:03 | C.PDOC ---
History Of Present Illness 58 y/o male comes in to ED complaining of hematuria and passing blood clots x4 days. Patient also complains of suprapubic and right-sided abdominal pain. Patient was seen here approximately 3 months ago and was told he had a large k idney stone, but he did not follow up with any urologist or any doctor. Chief Complaint (Nursing): Male Genitourinary History Per: Patient History/Exam Limitations: no limitations Onset/Duration Of Symptoms: Days Current Symptoms Are (Timing): Still Present Past Medical History Reviewed: Historical Data, Nursing Documentation, Vital Signs Vital Signs: Last Vital Signs Temp 97.8 F 02/16/19 13:14 Pulse 52 L 02/16/19 13:14 Resp 20 02/16/19 13:14 BP 146/78 02/16/19 13:14 Pulse Ox 96 02/16/19 14:23 - Medical History PMH: Kidney Stones Denies: Diabetes Family History: States: No Known Family Hx Denies: [place], Hypertension - Social History Hx Tobacco Use: Yes Hx Alcohol Use: Yes (denies) Hx Substance Use: Yes - Immunization History Hx Tetanus Toxoid Vaccination: No Hx Influenza Vaccination: No Hx Pneumococcal Vaccination: No Review Of Systems Except As Marked, All Systems Reviewed And Found Negative. Constitutional: Negative for: Fever Gastrointestinal: Positive for: Abdominal Pain (suprapubic and right-sided abdominal pain). Negative for: Nausea, Vomiting, Diarrhea, Constipation Genitourinary: Positive for: Hematuria, Other (Passing blood clots). Negative for: Penile Pain Musculoskeletal: Negative for: Back Pain Physical Exam - Physical Exam Appears: Non-toxic, Other (In mild distress) Skin: Warm, Dry Head: Atraumatic Eye(s): bilateral: Normal Inspection Oral Mucosa: Moist Neck: Supple Cardiovascular: Rhythm Regular, No Murmur Respiratory: Normal Breath Sounds, No Rales, No Rhonchi, No Wheezing Gastrointestinal/Abdominal: Soft, Tenderness (mild right sided abdominal tenderness, lower greater than upper) Back: No CVA Tenderness Extremity: Bilateral: Atraumatic, Normal ROM Neurological/Psych: Oriented x3, Normal Speech ED Course And Treatment - Laboratory Results Result Diagrams: 02/16/19 10:12 02/16/19 10:12 Lab Results: Total Bilirubin 0.5 mg/dL (0.2-1.3) 02/16/19 10:12 AST 53 U/L (17-59) 02/16/19 10:12 ALT 43 U/L (21-72) 02/16/19 10:12 Alkaline Phosphatase 86 U/L (38-126) 02/16/19 10:12 Total Protein 8.4 g/dL (6.3-8.3) H 02/16/19 10:12 Albumin 4.3 g/dL (3.5-5.0) 02/16/19 10:12 Globulin 4.1 gm/dL (2.2-3.9) H 02/16/19 10:12 Albumin/Globulin Ratio 1.1 (1.0-2.1) 02/16/19 10:12 Urine Color Margi (YELLOW) 02/16/19 09:25 Urine Clarity Hazy (Clear) 02/16/19 09:25 Urine pH 6.0 (5.0-8.0) 02/16/19 09:25 Ur Specific [place] 1.016 (1.003-1.030) 02/16/19 09:25 Urine Protein 2+ mg/dL (NEGATIVE) H 02/16/19 09:25 Urine Glucose (UA) Normal mg/dL (Normal) 02/16/19 09:25 Urine Ketones Negative mg/dL (NEGATIVE) 02/16/19 09:25 Urine Blood 3+ (NEGATIVE) H 02/16/19 09:25 Urine Nitrate Negative (NEGATIVE) 02/16/19 09:25 Urine Bilirubin Negative (NEGATIVE) 02/16/19 09:25 Urine Urobilinogen Normal mg/dL (0.2-1.0) 02/16/19 09:25 Ur Leukocyte Esterase 1+ Karlos/uL (Negative) H 02/16/19 09:25 Urine WBC (Auto) 16 /hpf (0-5) H 02/16/19 09:25 Urine RBC (Auto) 8427 /hpf (0-3) H 02/16/19 09:25 O2 Sat by Pulse Oximetry: 96 (RA) Pulse Ox Interpretation: Normal - CT Scan/US Abd/Pel CT Other Rad Studies (CT/US): Read By Radiologist, Radiology Report Reviewed CT/US Interpretation: FINDINGS: LOWER THORAX: Incidental upper limits of normal dilatation of the ascending thoracic aorta up to 3.9 cm with the aortic root measuring 3.5 cm. No infiltrate, pleural or pericardial effusion identified. LIVER: Nodular patent contour reiterated, suspicious for cirrhosis. No gross mass identified in this unenhanced exam. GALLBLADDER AND BILE DUCTS: Distended porcelain gallbladder again identified with numerous calculi layering in the dependent portion of the fundus and neck. No pericholecystic fluid collection appreciable. PANCREAS: Unremarkable. No gross lesion or ductal dilatation. SPLEEN: Splenomegaly reiterated up to 17.3 cm once again, no gross interval change. ADRENALS: Unremarkable. No mass. KIDNEYS AND URETERS: Persistent mild hydronephrosis appreciated now with proximal to mid left moderate hydroureter caused by the same 11 mm obstructing calculus now identified more distally, at the approximate S1 sacral there nonspecific mild dilatation of the distal ureteral segment as well though no ureteral calculus is seen associated. This may be a function of normal peristalsis. Clinically correlate further. Borderline left perinephric louie ges. Subtle left periureteral changes are identified. No right hydronephrosis or hydroureter. No right-sided radiodense urolithiasis identified nor additional left-sided radiodense urolithiasis. No definitive contour abnormality to suggest parenchymal mass bilaterally. VASCULATURE: Unremarkabl e. No aortic aneurysm. No aortic atherosclerotic calcification or mural plaque present. BOWEL: Unremarkable. No obstruction. No gross mural thickening. APPENDIX: Unremarkable. Normal appendix. PERITONEUM: Unremarkable. No free fluid. No free air. LYMPH NODES: Unremarkable. No enlarged lymph nodes. BLADDER: Limited urinary bladder distention is appreciated with bladder otherwise unremarkable. REPRODUCTIVE: Unremarkable. BONES: No acute fracture. OTHER FINDINGS: None. IMPRESSION: Prior 11 mm left UPJ calculus is now identified at the distal left ureter at the approximate S1 sacral level with persistent mild left hydronephrosis and interval moderate left hydroureter. Periureteral reactive change are identified but are minimal at perinephric space. Mild dilatation of the distal left ureter is appreciated after the calculus potentially is a function of normal peristalsis though this is indeterminate. No additional radiodense urolithiasis involving the left ureter with urinary bladder mildly distended but otherwise unremarkable. Unremarkable, stable appearing right kidney. Intramural gallbladder calcifications are reiterated with gallbladder distension, suggestive of porcelain gallbladder. Numerous calculi are identified in the dependent gallbladder including the neck. Stable appearance overall. Medical Decision Making Medical Decision Making: Plan: --Abd/Pel CT --Labs --IV fluids 1L --Toradol 30 mg IVP --UA Progress: Spoke to the hospitalist, reviewed CT scan which also showed a porcelain gallbladder. Patient to be admitted for further evaluation of his kidney stone and gallbladder. Disposition - Disposition Disposition: HOSPITALIZED Disposition Time: 11:45 Condition: FAIR - Clinical Impression Clinical Impression: Kidney stone, Gallstones, Porcelain gallbladder - Scribe Statement The provider has reviewed the documentation as recorded by the Madeline Huang Provider Attestation: All medical record entries made by the Madeline were at my direction and personally dictated by me. I have reviewed the chart and agree that the record accurately reflects my personal performance of the history, physical exam, medical decision making, and the department course for this patient. I have also personally directed, reviewed, and agree with the discharge instructions and disposition.
[2019-02-16] MEDS: Sodium Chloride 0.9% 1,000 ML IV SCH (16:59)
[2019-02-16 17:22] LABS: INR 1.3; PROTHROMBIN TIME 14.5 SECONDS (9.7-12.2)
--- NOTE | 2019-02-16 17:49 | CP.PCM.CON ---
History of Present Illness - History of Present Illness History of Present Illness: General Surgery: Thomas Patient is a 58 yr old male with PMH Hep C, previous Heroine abuse, on methadone who has been admitted to [facility] for an 11mm kidney stone lodged in his left UPJ. Surgery was consulted d/t incidental finding of gallbladder wall calcification on CT. Patient denies f/c, SOB, CP, n/v, RUQ pain, stool changes. Patient endorses lower pelvic pain and back pain on the left. 12 point ROS otherwise negative PMH: Hep C, previous Heroine abuse, on methadone PSH:denies Social: smokes 1/2ppd, former Heroin and ETOH All:NKDA Review of Systems - Review of Systems All systems: reviewed and no additional remarkable complaints except (as per HPI) Past Patient History - Infectious Disease Hx of Infectious Diseases: None - Past Social History Smoking Status: Heavy Smoker > 10 Cigarettes Daily - RENAL Hx Kidney Stones: Yes - GENITOURINARY/GYNECOLOGICAL Other/Comment: Hx of kidney stones - PSYCHIATRIC Hx Substance Use: Yes - SURGICAL HISTORY Hx Surgeries: No - ANESTHESIA Hx Anesthesia: Yes Hx Anesthesia Reactions: No Hx Malignant Hyperthermia: No Meds Allergies/Adverse Reactions: Allergies Allergy/AdvReac Type Severity Reaction Status Date / Time No Known Allergies Allergy Verified 02/16/19 09:05 - Medications Medications: Current Medications Sodium Chloride (Sodium Chloride 0.9%) 1,000 mls @ 145 mls/hr IV .[id number] [facility] Last Admin: 02/16/19 16:59 Dose: 145 mls/hr Ketorolac Tromethamine (Toradol) 15 mg IVP Q6 PRN PRN Reason: Pain, moderate (4-7) Ketorolac Tromethamine (Toradol) 30 mg IVP Q6 PRN PRN Reason: Pain, severe (8-10) Physical Exam - Constitutional Appears: Well, Non-toxic, No Acute Distress - Head Exam Head Exam: ATRAUMATIC, NORMOCEPHALIC - Eye Exam Eye Exam: EOMI - ENT Exam ENT Exam: Mucous Membranes Moist - Respiratory Exam Respiratory Exam: NORMAL BREATHING PATTERN - Cardiovascular Exam Cardiovascular Exam: REGULAR RHYTHM - GI/Abdominal Exam GI & Abdominal Exam: Tenderness (LLQ, none in RUQ, no retana's sign). absent: Guarding, Soft - Extremities Exam Extremities exam: Negative for: calf tenderness, pedal edema - Neurological Exam Neurological exam: Alert, Oriented x3 - Psychiatric Exam Psychiatric exam: Normal Affect, Normal Mood - Skin Skin Exam: Dry, Intact, Normal Color, Warm Results - Vital Signs Recent Vital Signs: Last Vital Signs Temp 97.7 F 02/16/19 15:06 Pulse 53 L 02/16/19 15:06 Resp 20 02/16/19 15:06 BP 144/88 02/16/19 15:06 Pulse Ox 96 02/16/19 16:05 - Labs Result Diagrams: 02/16/19 10:12 02/16/19 10:12 Labs: Laboratory Results - last 24 hr 02/16/19 02/16/19 02/16/19 09:25 10:12 10:12 WBC 4.7 L RBC 4.35 L Hgb 13.1 Hct 38.5 MCV 88.6 D MCH 30.2 MCHC 34.1 RDW 13.6 Plt Count 79 L MPV 8.0 Neut % (Auto) 47.6 L Lymph % (Auto) 40.1 H [place] % (Auto) 9.7 Eos % (Auto) 2.4 Baso % (Auto) 0.2 Neut # (Auto) 2.2 Lymph # (Auto) 1.9 [place] # (Auto) 0.5 Eos # (Auto) 0.1 Baso # (Auto) 0.0 Differential Comment PT INR APTT Sodium 137 Potassium 4.5 Chloride 99 Carbon Dioxide 34 H Anion Gap 9 L BUN 18 Creatinine 1.1 Est GFR ( Amer) > 60 Est GFR (Non-Af Amer) > 60 Random Glucose 100 Calcium 8.9 Total Bilirubin 0.5 AST 53 ALT 43 Alkaline Phosphatase 86 Total Protein 8.4 H Albumin 4.3 Globulin 4.1 H Albumin/Globulin Ratio 1.1 Urine Color Margi Urine Clarity Hazy Urine pH 6.0 Ur Specific [place] 1.016 Urine Protein 2+ H Urine Glucose (UA) Normal Urine Ketones Negative Urine Blood 3+ H Urine Nitrate Negative Urine Bilirubin Negative Urine Urobilinogen Normal Ur Leukocyte Esterase 1+ H Urine WBC (Auto) 16 H Urine RBC (Auto) 8427 H 02/16/19 16:58 WBC RBC Hgb Hct MCV MCH MCHC RDW Plt Count MPV Neut % (Auto) Lymph % (Auto) [place] % (Auto) Eos % (Auto) Baso % (Auto) Neut # (Auto) Lymph # (Auto) [place] # (Auto) Eos # (Auto) Baso # (Auto) Differential Comment PT 14.5 H INR 1.3 APTT 39.0 H Sodium Potassium Chloride Carbon Dioxide Anion Gap BUN Creatinine Est GFR ( Amer) Est GFR (Non-Af Amer) Random Glucose Calcium Total Bilirubin AST ALT Alkaline Phosphatase Total Protein Albumin Globulin Albumin/Globulin Ratio Urine Color Urine Clarity Urine pH Ur Specific [place] Urine Protein Urine Glucose (UA) Urine Ketones Urine Blood Urine Nitrate Urine Bilirubin Urine Urobilinogen Ur Leukocyte Esterase Urine WBC (Auto) Urine RBC (Auto) Assessment & Plan - Assessment and Plan (Free Text) Assessment: 58 yr old male with PMH heroin and cocaine abuse currently on methadone, CT evidence of Pocelain gallbladder Plan: - as pt is currently asymptomatic no acute surgical intervention at this time - pt may f/u with Dr. Guzamn in clinic for future surgical planning - discussed with Dr. Thomas Strickland, PGY1 - Date & Time Date: 02/16/19 Time: 17:49
[2019-02-16 17:54] LABS: HEPATITIS B SURFACE AG Negative (NEGATIVE)
[2019-02-16 18:01] LABS: HEPATITIS A IGM NEGATIVE (NEGATIVE); HEPATITIS B CORE AB NEGATIVE (NEGATIVE)
[2019-02-16 18:31] LABS: HEPATITIS C ANTIBODY REACTIVE (NEGATIVE)
[2019-02-17] MEDS: Sodium Chloride 0.9% 1,000 ML IV SCH ×4 (01:16→23:51)
[2019-02-17 07:47] LABS: BASO % 0.5 % (0.0-2.0); EOS # 0.1 K/uL (0.0-0.7); HEMOGLOBIN 12.6 g/dL (12.0-18.0); LYMPH # 1.7 K/uL (1.0-4.3); MEAN CELL VOLUME 89.3 fL (80.0-94.0); MEAN CORPUSCULAR HEMOGLOBIN 30.8 pg (27.0-31.0); MEAN CORPUSCULAR HGB CONC 34.5 g/dL (33.0-37.0); MEAN PLATELET VOLUME 8.4 fL (7.2-11.7); MONO # 0.4 K/uL (0.0-0.8); MONO % 9.5 % (0.0-10.0); NEUT # 1.9 K/uL (1.8-7.0); RBC 4.11 Mil/uL (4.40-5.90); RED CELL DISTRIBUTION WIDTH 13.9 % (11.5-14.5); WHITE BLOOD COUNT 4.1 K/uL (4.8-10.8)
--- NOTE | 2019-02-17 07:48 | CP.PCM.PN ---
<Dillon Randhawa - Last Filed: 02/17/19 14:13> Subjective - Date & Time of Evaluation Date of Evaluation: 02/17/19 Time of Evaluation: 07:47 - Subjective Subjective: PGY-1 Medicine Progress Note for Dr. Hinojosa Patient seen and examined at bedside this AM, in no acute distress. He does complain of some minor L flank pain exacerbated with movement but denies any hematuria, urinary straining, pain with urination. No abdominal pain, n/v/d/c. 12 pt ROS reviewed and otherwise negative. Objective - Vital Signs/Intake and Output Vital Signs (last 24 hours): Temp Pulse Resp BP Pulse Ox 97.9 F 62 20 121/76 94 L 02/16/19 23:15 02/16/19 23:15 02/16/19 23:15 02/16/19 23:15 02/16/19 23:15 Intake and Output: 02/17/19 02/17/19 06:59 18:59 Intake Total 2680 Output Total 800 Balance 1880 - Medications Medications: Current Medications Sodium Chloride (Sodium Chloride 0.9%) 1,000 mls @ 145 mls/hr IV .Q6H54M [facility] Last Admin: 02/17/19 01:16 Dose: 145 mls/hr Ketorolac Tromethamine (Toradol) 15 mg IVP Q6 PRN PRN Reason: Pain, moderate (4-7) Ketorolac Tromethamine (Toradol) 30 mg IVP Q6 PRN PRN Reason: Pain, severe (8-10) - Labs Labs: 02/16/19 10:12 02/16/19 10:12 PT 14.5 SECONDS (9.7-12.2) H 02/16/19 16:58 INR 1.3 02/16/19 16:58 APTT 39.0 SECONDS (21-34) H 02/16/19 16:58 - Constitutional Appears: Non-toxic, No Acute Distress - Head Exam Head Exam: ATRAUMATIC, NORMAL INSPECTION, NORMOCEPHALIC - Eye Exam Eye Exam: EOMI, Normal appearance, PERRL Pupil Exam: NORMAL ACCOMODATION - ENT Exam ENT Exam: Mucous Membranes Moist, Normal Exam - Neck Exam Neck Exam: Full ROM, Normal Inspection - Respiratory Exam Respiratory Exam: Clear to Ausculation Bilateral, NORMAL BREATHING PATTERN. absent: Accessory Muscle Use, Rales, Rhonchi, Wheezes, Respiratory Distress, Stridor - Cardiovascular Exam Cardiovascular Exam: REGULAR RHYTHM, +S1, +S2 - GI/Abdominal Exam GI & Abdominal Exam: Soft, Normal Bowel Sounds. absent: Distended, Firm, Guarding, Rigid, Tenderness, Rebound - Extremities Exam Extremities Exam: Full ROM, Normal Capillary Refill, Normal Inspection. absent: Calf Tenderness, Pedal Edema - Back Exam Back Exam: NORMAL INSPECTION. absent: CVA tenderness (L), CVA tenderness (R) - Neurological Exam Neurological Exam: Alert, Awake, CN II-XII Intact, Normal Gait, Oriented x3 - Skin Skin Exam: Dry, Intact, Normal Color, Warm Assessment and Plan - Assessment and Plan (Free Text) Assessment: 58 year old male with pmhx of heroin abuse on home methadone, hepatitic C presenting to ED with L flank pain, found to have 11 mm calculi in distal L ureter. Plan: Ureteral calculus -remains afebrile, no leukocytosis -BUN/Cr wnl -CT abdomen/pelvis w/o IV contrast: Prior 11 mm left UPJ calculus is now identified at the distal left ureter at the approximate S1 sacral level with persistent mild left hydronephrosis and interval moderate left hydroureter. Periureteral reactive change are identified but are minimal at perinephric space. Mild dilatation of the distal left ureter is appreciated after the calculus potentially is a function of normal peristalsis though this is indeterminate. No additional radiodense urolithiasis involving the left ureter with urinary bladder mildly distended but otherwise unremarkable. Unremarkable, stable appearing right kidney. -Urology (Dr. Mahoney) on board -pt NPO for OR today -NS @ 145 cc/hr -toradol 30 mg IVP q6 prn -toradol 15 mg IVP q6 prn Hematuria, improved -2/2 calculus -pt denies any bloody urine this AM -Hb/Hct remains stable -continue to monitor Porcelain gallbladder -CT abdomen/pelvis: Intramural gallbladder calcifications are reiterated with gallbladder distension, suggestive of porcelain gallbladder. Numerous calculi are identified in the dependent gallbladder including the neck -General Surgery (Dr. Guzman) recs appreciated -no acute intervention at this time Hx of heroin abuse -last reported use was 5 years ago -attends [facility] -Methadone 65 mg PO daily as per patient -last dose was morning of 02/16 -Please call [facility] in the [place], , to confirm dose. Attempted 2x on day of admission, once more today unsuccessfully Tobacco Abuse -cessation counseling provided -refused nicotine patch HCV Antibody positive in blood Hep C antibody reactive (01/03/15) As per patient, he was never treated F/U hepatitis panel and Hep C viral RNA Qual PPx, Diet, Disposition -DVT ppx: scds -GI ppx: not indicated at this time -Diet: NPO Case discussed with Dr. Ashish Randhawa DO, PGY-1 <Patricia Hinojosa - Last Filed: 02/17/19 16:21> Objective - Vital Signs/Intake and Output Vital Signs (last 24 hours): Temp Pulse Resp BP Pulse Ox 98.3 F 65 20 141/92 H 98 02/17/19 15:13 02/17/19 15:13 02/17/19 15:13 02/17/19 15:13 02/17/19 15:13 Intake and Output: 02/17/19 02/17/19 06:59 18:59 Intake Total 2680 700 Output Total 800 150 Balance 1880 550 - Medications Medications: Current Medications Sodium Chloride (Sodium Chloride 0.9%) 1,000 mls @ 145 mls/hr IV .Q6H54M [facility] Last Admin: 02/17/19 08:18 Dose: 145 mls/hr Ketorolac Tromethamine (Toradol) 15 mg IVP Q6 PRN PRN Reason: Pain, moderate (4-7) Ketorolac Tromethamine (Toradol) 30 mg IVP Q6 PRN PRN Reason: Pain, severe (8-10) Methadone HCl (Methadone) 5 mg PO Q24H [facility] Methadone HCl (Methadose) 40 mg PO Q24H [facility] Methadone HCl (Methadone) 20 mg PO Q24H [facility] - Labs Labs: 02/17/19 07:33 02/17/19 07:33 PT 14.5 SECONDS (9.7-12.2) H 02/16/19 16:58 INR 1.3 02/16/19 16:58 APTT 39.0 SECONDS (21-34) H 02/16/19 16:58 Attending/Attestation - Attestation I have personally seen and examined this patient.: Yes I have fully participated in the care of the patient.: Yes I have reviewed all pertinent clinical information, including history, physical exam and plan: Yes Notes (Text): seen and examined patient is NPO for Stent placement ,his hematuria is clearing,Patient was seen by Surgeon for Porcelain GB. recommend to follow out pt we will follow up with urologist
[2019-02-17 08:11] LABS: ALB/GLOB RATIO 1.1 (1.0-2.1); ALBUMIN 3.8 g/dL (3.5-5.0); ALT/SGPT 41 U/L (21-72); AST/SGOT 53 U/L (17-59); BLOOD UREA NITROGEN 21 mg/dL (9-20); CALCIUM 8.3 mg/dl (8.6-10.4); GFR NON-AFRICAN AMERICAN > 60
[2019-02-17] MEDS ORDERED: Iohexol 240 (50 ml) ONE (11:29)
[2019-02-17] MEDS ORDERED: Lidocaine 2% Jelly (Uro-Jet) ONE (11:29)
[2019-02-17] MEDS ORDERED: cefTRIAXone 1 gm 0 GM/0 ML BAG IVPB ONE (11:29)
[2019-02-17] MEDS ORDERED: Ciprofloxacin 400mg/200ml D5W 400 MG/200 ML BAG IVPB ONE (12:33)
[2019-02-17] MEDS ORDERED: Etomidate 20 mg/10ml Inj IV ONE (12:48)
[2019-02-17] MEDS ORDERED: Midazolam 2 MG/2 ML VIAL ONE (12:48)
[2019-02-17] MEDS ORDERED: Propofol 10 mg/ml Inj (20 ML) ONE (13:03)
[2019-02-17] MEDS ORDERED: HYDROmorphone 0.5 mg/0.5 ml ISec IVP PRN (13:28)
[2019-02-17] MEDS ORDERED: Methadone 40 mg Tab PO SCH (15:30)
[2019-02-17 15:46] VITALS: RESP 20
--- NOTE | 2019-02-17 16:16 | RAD ---
Date of service: 02/17/2019 HISTORY: LT. URETER STONE COMPARISON: CT abdomen and pelvis without contrast performed 02/16/19 TECHNIQUE: 1 view obtained. FINDINGS: BOWEL: Nonobstructive bowel gas pattern. Moderate constipation. Extensive right upper quadrant calcifications consistent with previously demonstrated cholelithiasis. 8 mm calcification projects over the left sacrum, possibly ureteral calculus. Pelvic calcifications, likely phleboliths. BONES: Degenerative changes. OTHER FINDINGS: None. IMPRESSION: 8 mm calcification projects over the left sacrum, possibly ureteral calculus. Extensive right upper quadrant calcifications consistent with previously demonstrated cholelithiasis.
[2019-02-18] MEDS: Sodium Chloride 0.9% 1,000 ML IV SCH ×3 (01:54→09:55)
--- NOTE | 2019-02-18 07:13 | CP.PCM.PN ---
Objective - Vital Signs/Intake and Output Vital Signs (last 24 hours): Temp Pulse Resp BP Pulse Ox 97.9 F 59 L 20 115/73 96 02/17/19 23:14 02/17/19 23:14 02/17/19 23:14 02/17/19 23:14 02/17/19 23:14 Intake and Output: 02/18/19 02/18/19 06:59 18:59 Intake Total 2650 Output Total 2450 Balance 200 - Medications Medications: Current Medications Sodium Chloride (Sodium Chloride 0.9%) 1,000 mls @ 145 mls/hr IV .Q6H54M [facility] Last Admin: 02/18/19 02:23 Dose: Not Given Ketorolac Tromethamine (Toradol) 15 mg IVP Q6 PRN PRN Reason: Pain, moderate (4-7) Ketorolac Tromethamine (Toradol) 30 mg IVP Q6 PRN PRN Reason: Pain, severe (8-10) Methadone HCl (Methadone) 5 mg PO Q24H [facility] Last Admin: 02/17/19 17:16 Dose: 5 mg Methadone HCl (Methadose) 40 mg PO Q24H [facility] Last Admin: 02/17/19 17:16 Dose: 40 mg Methadone HCl (Methadone) 20 mg PO Q24H [facility] Last Admin: 02/17/19 17:16 Dose: 20 mg - Labs Labs: 02/17/19 07:33 02/17/19 07:33 PT 14.5 SECONDS (9.7-12.2) H 02/16/19 16:58 INR 1.3 02/16/19 16:58 APTT 39.0 SECONDS (21-34) H 02/16/19 16:58
--- NOTE | 2019-02-18 07:16 | OP ---
PROCEDURE DATE: INDICATION FOR PROCEDURE: The patient has a right lower ureteral calculus, measuring 1.1 cm. DESCRIPTION OF PROCEDURE: The patient was brought to the OR, prepped and draped in the usual manner after general anesthesia was given. A #21 cystourethroscope was inserted to the bladder. A 0.035 wire was then passed into the orifice up into the kidney. Double-J stent was then left over the wire. The wire was removed. Good placement of the stent. The patient tolerated the procedure well, left the OR in good condition. Alfonzo Mahoney MD
--- NOTE | 2019-02-18 07:16 | CP.PCM.DIS ---
<MoodylissamickyeDillon - Last Filed: 02/18/19 11:15> Provider - Provider Date of Admission: 02/16/19 12:19 Attending physician: Patricia Hinojosa MD Consults: 02/16/19 13:02 Physician Consult Routine Comment: Consulting Provider: Alfonzo Mahoney Consulting Physician: Alfonzo Mahoney Reason for Consult: Hematuria and 11mm obstructing calculi left Additional Comments: Abd/Pelvis CT: Persistent mild hydronephrosis appreciated now with proximal to mid left moderate hydroureter caused by the same 11 mm obstructing calculus 02/16/19 13:24 Physician Consult Routine Comment: Consulting Provider: Saadia Guzman Consulting Physician: Saadia Guzman Reason for Consult: Abdomen/Pelvis CT: Suggestive of porcelain gallbladder Additional Comments: Patient currently admittied for hematuria with obs tructing calculi of the ureteropelvic junction Time Spent in preparation of Discharge (in minutes): 40 Hospital Course - Lab Results Lab Results: Micro Results 02/16/19 10:12 Urine Random Urine Culture - Final No Growth (<1,000 CFU/ML) Most Recent Lab Values WBC 4.1 K/uL (4.8-10.8) L 02/17/19 07:33 RBC 4.11 Mil/uL (4.40-5.90) L 02/17/19 07:33 Hgb 12.6 g/dL (12.0-18.0) 02/17/19 07:33 Hct 36.7 % (35.0-51.0) 02/17/19 07:33 MCV 89.3 fL (80.0-94.0) 02/17/19 07:33 MCH 30.8 pg (27.0-31.0) 02/17/19 07:33 MCHC 34.5 g/dL (33.0-37.0) 02/17/19 07:33 RDW 13.9 % (11.5-14.5) 02/17/19 07:33 Plt Count 75 K/uL (130-400) L 02/17/19 07:33 MPV 8.4 fL (7.2-11.7) 02/17/19 07:33 Neut % (Auto) 46.0 % (50.0-75.0) L 02/17/19 07:33 Lymph % (Auto) 41.0 % (20.0-40.0) H 02/17/19 07:33 [place] % (Auto) 9.5 % (0.0-10.0) 02/17/19 07:33 Eos % (Auto) 3.0 % (0.0-4.0) 02/17/19 07:33 Baso % (Auto) 0.5 % (0.0-2.0) 02/17/19 07:33 Neut # (Auto) 1.9 K/uL (1.8-7.0) 02/17/19 07:33 Lymph # (Auto) 1.7 K/uL (1.0-4.3) 02/17/19 07:33 [place] # (Auto) 0.4 K/uL (0.0-0.8) 02/17/19 07:33 Eos # (Auto) 0.1 K/uL (0.0-0.7) 02/17/19 07:33 Baso # (Auto) 0.0 K/uL (0.0-0.2) 02/17/19 07:33 Differential Comment 02/16/19 10:12 PT 14.5 SECONDS (9.7-12.2) H 02/16/19 16:58 INR 1.3 02/16/19 16:58 APTT 39.0 SECONDS (21-34) H 02/16/19 16:58 Sodium 136 mmol/L (132-148) 02/17/19 07:33 Potassium 5.0 mmol/L (3.6-5.2) 02/17/19 07:33 Chloride 102 mmol/L (98-107) 02/17/19 07:33 Carbon Dioxide 28 mmol/L (22-30) 02/17/19 07:33 Anion Gap 12 (10-20) 02/17/19 07:33 BUN 21 mg/dL (9-20) H 02/17/19 07:33 Creatinine 1.0 mg/dL (0.8-1.5) 02/17/19 07:33 Est GFR ( Amer) > 60 02/17/19 07:33 Est GFR (Non-Af Amer) > 60 02/17/19 07:33 Random Glucose 113 mg/dL (75-110) H 02/17/19 07:33 Calcium 8.3 mg/dl (8.6-10.4) L 02/17/19 07:33 Phosphorus 3.7 mg/dL (2.5-4.5) 02/17/19 07:33 Magnesium 2.0 mg/dL (1.6-2.3) 02/17/19 07:33 Total Bilirubin 0.4 mg/dL (0.2-1.3) 02/17/19 07:33 AST 53 U/L (17-59) 02/17/19 07:33 ALT 41 U/L (21-72) 02/17/19 07:33 Alkaline Phosphatase 94 U/L (38-126) 02/17/19 07:33 Total Protein 7.4 g/dL (6.3-8.3) 02/17/19 07:33 Albumin 3.8 g/dL (3.5-5.0) 02/17/19 07:33 Globulin 3.6 gm/dL (2.2-3.9) 02/17/19 07:33 Albumin/Globulin Ratio 1.1 (1.0-2.1) 02/17/19 07:33 Urine Color Margi (YELLOW) 02/16/19 09:25 Urine Clarity Hazy (Clear) 02/16/19 09:25 Urine pH 6.0 (5.0-8.0) 02/16/19 09:25 Ur Specific [place] 1.016 (1.003-1.030) 02/16/19 09:25 Urine Protein 2+ mg/dL (NEGATIVE) H 02/16/19 09:25 Urine Glucose (UA) Normal mg/dL (Normal) 02/16/19 09:25 Urine Ketones Negative mg/dL (NEGATIVE) 02/16/19 09:25 Urine Blood 3+ (NEGATIVE) H 02/16/19 09:25 Urine Nitrate Negative (NEGATIVE) 02/16/19 09:25 Urine Bilirubin Negative (NEGATIVE) 02/16/19 09:25 Urine Urobilinogen Normal mg/dL (0.2-1.0) 02/16/19 09:25 Ur Leukocyte Esterase 1+ Karlos/uL (Negative) H 02/16/19 09:25 Urine WBC (Auto) 16 /hpf (0-5) H 02/16/19 09:25 Urine RBC (Auto) 8427 /hpf (0-3) H 02/16/19 09:25 Hepatitis A IgM Ab Negative (NEGATIVE) 02/16/19 16:58 Hep Bs Antigen Negative (NEGATIVE) 02/16/19 16:58 Hep B Core IgM Ab Negative (NEGATIVE) 02/16/19 16:58 Hepatitis C Antibody Reactive (NEGATIVE) 02/16/19 16:58 - Hospital Course Hospital Course: HPI: Patient is a 58 year old male with no known medical history (as per patient), however as per EMR, he does have hx of hepatitis C and Heroin use (last use was 5 years ago). Patient presents to the ED with complaints of gross hematuria that has been ongoing for 3-4 days with left flank patient that started yesterday. Patient states that he noted left flank pain yesterday that worsens with movement and mildly alleviated with advil. Also, patient reports lower abdominal discomfort that is exacerbated with urination. Patient states that he took a pill that he was prescribed back in October last night and this morning; patient does not recall the name of the pill. Patient denies any symptoms of fever, chills, nausea, vomiting, shortness of breath, chest pain, palpitations or hematochezia. Patient was seen in the ED for similar complaints in October and was discharged with a referral to urology, Dr. Timur Jeffery The following is a summary of hospital course. For full detail, please refer to EMR: Ureteral calculus -remains afebrile, no leukocytosis -BUN/Cr wnl -CT abdomen/pelvis w/o IV contrast: Prior 11 mm left UPJ calculus is now identified at the distal left ureter at the approximate S1 sacral level with persistent mild left hydronephrosis and interval moderate left hydroureter. Periureteral reactive change are identified but are minimal at perinephric space. Mild dilatation of the distal left ureter is appreciated after the calculus potentially is a function of normal peristalsis though this is inde terminate. No additional radiodense urolithiasis involving the left ureter with urinary bladder mildly distended but otherwise unremarkable. Unremarkable, stable appearing right kidney. -Urology (Dr. Mahoney) on board -s/p ureteral stent placement -NS @ 145 cc/hr -toradol 30 mg IVP q6 prn -toradol 15 mg IVP q6 prn Hematuria, improved -2/2 calculus -pt denies any bloody urine this AM -Hb/Hct remains stable -continue to monitor Porcelain gallbladder -CT abdomen/pelvis: Intramural gallbladder calcifications are reiterated with gallbladder distension, suggestive of porcelain gallbladder. Numerous calculi are identified in the dependent gallbladder including the neck -General Surgery (Dr. Guzman) recs appreciated -no acute intervention at this time Hx of heroin abuse -last reported use was 5 years ago -attends [facility] -Methadone 65 mg PO daily as per patient -last dose was morning of 02/16 -Please call [facility] in the m, , to confirm dose. Attempted 2x on day of admission, once more today unsuccessfully Tobacco Abuse -cessation counseling provided -refused nicotine patch HCV Antibody positive in blood Hep C antibody reactive (01/03/15) As per patient, he was never treated F/U hepatitis panel and Hep C viral RNA Qual PPx, Diet, Disposition -DVT ppx: scds -GI ppx: not indicated at this time -Diet: HHD On discharge: Patient is medically stable for discharge to home, as per Dr. Hinojosa. Please take medications as prescribed. Patient will need to apply for migue care and establish care with the hospital clinic. Contact information has been provided below. Please call to schedule an appointment within 1 week of discharge. [place] [address] Patient is instructed to follow up with Urology (Dr. Mahoney) within 1 week of discharge for further recommendations and monitoring. Given the size of the stone, patient will likely need lithotripsy outpatient to dissolve stone, as per recommendations. If symptoms worsen or persist, please return to ED immediately. - Date & Time of H&P Date of H&P: 02/18/19 Time of H&P: 11:15 Discharge Exam - Head Exam Head Exam: ATRAUMATIC, NORMAL INSPECTION, NORMOCEPHALIC - Eye Exam Eye Exam: EOMI, Normal appearance, PERRL Pupil Exam: NORMAL ACCOMODATION - ENT Exam ENT Exam: Normal Exam - Neck Exam Neck exam: Full Rom, Normal Inspection - Respiratory Exam Respiratory Exam: Clear to PA & Lateral, NORMAL BREATHING PATTERN, UNREMARKABLE. absent: Accessory Muscle Use, Respiratory Distress - Cardiovascular Exam Cardiovascular Exam: REGULAR RHYTHM, +S1, +S2 - GI/Abdominal Exam GI & Abdominal Exam: Normal Bowel Sounds, Soft, Unremarkable. absent: Distended, Firm, Guarding, Rebound, Tenderness - Extremities Exam Extremities exam: full ROM, normal capillary refill, normal inspection, pedal pulses present - Back Exam Back exam: NORMAL INSPECTION. absent: CVA tenderness (L), CVA tenderness (R) - Neurological Exam Neurological exam: Alert, Normal Gait, Oriented x3 - Skin Skin Exam: Dry, Intact, Normal Color, Warm Discharge Plan - Discharge Medications Prescriptions: Tamsulosin HCl [Flomax] 0.4 mg PO DAILY #30 cap.er.24h - Follow Up Plan Condition: FAIR Disposition: HOME/ ROUTINE Instructions: Tamsulosin, Cystoscopy (DC), Ureteral Stent (DC), Managing Pain After Surgery Additional Instructions: Patient is medically stable for discharge to home, as per Dr. Hinojosa. Please take medications as prescribed. Patient will need to apply for migue care and establish care with the hospital clinic. Contact information has been provided below. Please call to schedule an appointment within 1 week of discharge. [place] [address] Patient is instructed to follow up with Urology (Dr. Mahoney) within 1 week of discharge for further recommendations and monitoring. Given the size of the stone, patient will likely need lithotripsy outpatient to dissolve stone, as per recommendations. If symptoms worsen or persist, please return to ED immediately. El paciente se encuentra mdicamente estable para el tracy hospitalaria, segn el Dr. Hinojosa. Por favor, tome los medicamentos segn lo prescrito. El paciente deber solicitar atencin de wilber y establecer la atencin con la clnica del hospital. La informacin de contacto se rodrigez proporcionado a continuacin. Por favor llame para programar lionel homer dentro de 1 semana de tracy. [facility] [place] [address] [place]: [phone] Se instruye al paciente para que realice un seguimiento con Urologa (Dr. Mahoney) dentro de la primera semana del tracy hospitalaria para obtener ms recomendaciones y monitoreo. Dado el tamao de la henri, es probable que el paciente necesite litotricia ambulatoria para disolver la henri, segn las recomendaciones. Si los sntomas empeoran o persisten, regrese a la DE de inmediato. Referrals: Alfonzo Mahoney MD [Staff Provider] - Clinic,Med Surg [Non-Staff] - <Patricia Hinojosa - Last Filed: 02/18/19 16:28> Provider - Provider Date of Admission: 02/16/19 12:19 Attending physician: Patricia Hinojosa MD Consults: 02/16/19 13:02 Physician Consult Routine Comment: Consulting Provider: Alfonzo Mahoney Consulting Physician: Alfonzo Mahoney Reason for Consult: Hematuria and 11mm obstructing calculi left Additional Comments: Abd/Pelvis CT: Persistent mild hydronephrosis appreciated now with proximal to mid left moderate hydroureter caused by the same 11 mm obstructing calculus 02/16/19 13:24 Physician Consult Routine Comment: Consulting Provider: Saadia Guzman Consulting Physician: Saadia Guzman Reason for Consult: Abdomen/Pelvis CT: Suggestive of porcelain gallbladder Additional Comments: Patient currently admittied for hematuria with obstructing calculi of the ureteropelvic junction Hospital Course - Lab Results Lab Results: Micro Results 02/16/19 10:12 Urine Random Urine Culture - Final No Growth (<1,000 CFU/ML) Most Recent Lab Values WBC 4.4 K/uL (4.8-10.8) L 02/18/19 08:08 RBC 4.21 Mil/uL (4.40-5.90) L 02/18/19 08:08 Hgb 12.9 g/dL (12.0-18.0) 02/18/19 08:08 Hct 37.1 % (35.0-51.0) 02/18/19 08:08 MCV 88.1 fL (80.0-94.0) 02/18/19 08:08 MCH 30.6 pg (27.0-31.0) 02/18/19 08:08 MCHC 34.7 g/dL (33.0-37.0) 02/18/19 08:08 RDW 13.7 % (11.5-14.5) 02/18/19 08:08 Plt Count 76 K/uL (130-400) L 02/18/19 08:08 MPV 8.0 fL (7.2-11.7) 02/18/19 08:08 Neut % (Auto) 54.1 % (50.0-75.0) 02/18/19 08:08 Lymph % (Auto) 35.9 % (20.0-40.0) 02/18/19 08:08 [place] % (Auto) 6.5 % (0.0-10.0) 02/18/19 08:08 Eos % (Auto) 3.1 % (0.0-4.0) 02/18/19 08:08 Baso % (Auto) 0.4 % (0.0-2.0) 02/18/19 08:08 Neut # (Auto) 2.4 K/uL (1.8-7.0) 02/18/19 08:08 Lymph # (Auto) 1.6 K/uL (1.0-4.3) 02/18/19 08:08 [place] # (Auto) 0.3 K/uL (0.0-0.8) 02/18/19 08:08 Eos # (Auto) 0.1 K/uL (0.0-0.7) 02/18/19 08:08 Baso # (Auto) 0.0 K/uL (0.0-0.2) 02/18/19 08:08 Differential Comment 02/16/19 10:12 PT 14.5 SECONDS (9.7-12.2) H 02/16/19 16:58 INR 1.3 02/16/19 16:58 APTT 39.0 SECONDS (21-34) H 02/16/19 16:58 Sodium 143 mmol/L (132-148) 02/18/19 08:08 Potassium 4.5 mmol/L (3.6-5.2) 02/18/19 08:08 Chloride 103 mmol/L (98-107) 02/18/19 08:08 Carbon Dioxide 29 mmol/L (22-30) 02/18/19 08:08 Anion Gap 15 (10-20) 02/18/19 08:08 BUN 17 mg/dL (9-20) 02/18/19 08:08 Creatinine 1.1 mg/dL (0.8-1.5) 02/18/19 08:08 Est GFR ( Amer) > 60 02/18/19 08:08 Est GFR (Non-Af Amer) > 60 02/18/19 08:08 Random Glucose 116 mg/dL (75-110) H 02/18/19 08:08 Calcium 8.5 mg/dl (8.6-10.4) L 02/18/19 08:08 Phosphorus 3.6 mg/dL (2.5-4.5) 02/18/19 08:08 Magnesium 1.9 mg/dL (1.6-2.3) 02/18/19 08:08 Total Bilirubin 0.5 mg/dL (0.2-1.3) 02/18/19 08:08 AST 56 U/L (17-59) 02/18/19 08:08 ALT 46 U/L (21-72) 02/18/19 08:08 Alkaline Phosphatase 85 U/L (38-126) 02/18/19 08:08 Total Protein 7.7 g/dL (6.3-8.3) 02/18/19 08:08 Albumin 3.8 g/dL (3.5-5.0) 02/18/19 08:08 Globulin 3.8 gm/dL (2.2-3.9) 02/18/19 08:08 Albumin/Globulin Ratio 1.0 (1.0-2.1) 02/18/19 08:08 Urine Color Margi (YELLOW) 02/16/19 09:25 Urine Clarity Hazy (Clear) 02/16/19 09:25 Urine pH 6.0 (5.0-8.0) 02/16/19 09:25 Ur Specific [place] 1.016 (1.003-1.030) 02/16/19 09:25 Urine Protein 2+ mg/dL (NEGATIVE) H 02/16/19 09:25 Urine Glucose (UA) Normal mg/dL (Normal) 02/16/19 09:25 Urine Ketones Negative mg/dL (NEGATIVE) 02/16/19 09:25 Urine Blood 3+ (NEGATIVE) H 02/16/19 09:25 Urine Nitrate Negative (NEGATIVE) 02/16/19 09:25 Urine Bilirubin Negative (NEGATIVE) 02/16/19 09:25 Urine Urobilinogen Normal mg/dL (0.2-1.0) 02/16/19 09:25 Ur Leukocyte Esterase 1+ Karlos/uL (Negative) H 02/16/19 09:25 Urine WBC (Auto) 16 /hpf (0-5) H 02/16/19 09:25 Urine RBC (Auto) 8427 /hpf (0-3) H 02/16/19 09:25 Hepatitis A IgM Ab Negative (NEGATIVE) 02/16/19 16:58 Hep Bs Antigen Negative (NEGATIVE) 02/16/19 16:58 Hep B Core IgM Ab Negative (NEGATIVE) 02/16/19 16:58 Hepatitis C Antibody Reactive (NEGATIVE) 02/16/19 16:58 Attending/Attestation - Attestation I have personally seen and examined this patient.: Yes I have fully participated in the care of the patient.: Yes I have reviewed all pertinent clinical information, including history, physical exam and plan: Yes Notes (Text): Patient was explained about stent placement and the need for follow up. Ask to get migue care and follow with [facility]. Recommend to come to [facility] if he develop fever or increasing pain.Discharge on antibiotics and flomax
[2019-02-18 08:11] VITALS: BP 152/88; PULSE 62; TEMP 98.7; O2SAT 97
[2019-02-18 08:23] LABS: BASO % 0.4 % (0.0-2.0); EOS # 0.1 K/uL (0.0-0.7); EOS % 3.1 % (0.0-4.0); HEMOGLOBIN 12.9 g/dL (12.0-18.0); LYMPH # 1.6 K/uL (1.0-4.3); LYMPH % 35.9 % (20.0-40.0); MEAN CELL VOLUME 88.1 fL (80.0-94.0); MEAN CORPUSCULAR HEMOGLOBIN 30.6 pg (27.0-31.0); MEAN CORPUSCULAR HGB CONC 34.7 g/dL (33.0-37.0); MONO # 0.3 K/uL (0.0-0.8); MONO % 6.5 % (0.0-10.0); NEUT # 2.4 K/uL (1.8-7.0); NEUT % 54.1 % (50.0-75.0); NRBC % 0.2 % (0.0-2.0); RBC 4.21 Mil/uL (4.40-5.90); RED CELL DISTRIBUTION WIDTH 13.7 % (11.5-14.5); WHITE BLOOD COUNT 4.4 K/uL (4.8-10.8)
--- NOTE | 2019-02-18 08:36 | RAD ---
Date of service: 02/17/2019 PROCEDURE: Intraoperative fluoroscopy HISTORY: LT. URETER STONE COMPARISON: Not available TECHNIQUE: Intraoperative fluoroscopy was provided for left ureteral stent insertion. Total time of fluoroscopy was 73.1 sec. Cumulative dose was 1.76 mGy meters squared. FINDINGS: Multiple fluoroscopic spot films are submitted. IMPRESSION: Fluoroscopy provided.
[2019-02-18 08:48] LABS: ALBUMIN 3.8 g/dL (3.5-5.0); ALT/SGPT 46 U/L (21-72); AST/SGOT 56 U/L (17-59); BLOOD UREA NITROGEN 17 mg/dL (9-20); CALCIUM 8.5 mg/dl (8.6-10.4); GFR NON-AFRICAN AMERICAN > 60
--- NOTE | 2019-02-19 10:41 | CARD ---
APPROVED REPORT Date of service: 02/17/2019 EKG Measurement Heart [id number] <Conclusion> Normal sinus rhythm Normal ECG
== END 2019-02-18 13:20 | disposition home or self-care (01) ==
LOC: C.ER 08:51 → C.9E 12:19 → C.6T 12:49
PROVIDERS: ADMIT Internal Medicine; ATTEND Internal Medicine
DX: N20.2 Calculus of kidney with calculus of ureter (principal); R31.0 Gross hematuria; F17.210 Nicotine dependence, cigarettes, uncomplicated; B19.20 Unspecified viral hepatitis C without hepatic coma
CPT/HCPCS: 36415; 52332; 74018; 74176; 80053; 80074; 81001; 83735; 84100; 85025; 85610; 85730; 87086; 87521; 93005; 96374; 99285; C1725; C1758; C1769; G0378; J0744; J1885; J7030

== ENCOUNTER 2019-02-28 10:55 | Emergency (ER) | payer MEDICAID ==
[2019-02-28 11:23] VITALS: BP 153/87; PULSE 90; RESP 18; TEMP 98.8; O2SAT 98
--- NOTE | 2019-02-28 11:55 | C.PDOC ---
History Of Present Illness 58 year old male with PMHx of recent stent placement for kidney stones and CKB presents to ED with complaint of left flank pain associated with burning urination. Patient states that he is currently taking antibiotics, but doesn't know which one. Patient states that he also takes another medication that helps him pee. He states that he saw , who placed the stent, and he was referred to the ED.Patient denies fever, chills, night sweats, dark/bloody stools, or vomiting. Time Seen by Provider: 02/28/19 11:51 Chief Complaint (Nursing): Male Genitourinary History Per: Patient History/Exam Limitations: no limitations Onset/Duration Of Symptoms: Days (1) Current Symptoms Are (Timing): Still Present Quality Of Discomfort: Burning, "Pain" Associated Symptoms: Urinary Symptoms. denies: Fever, Chills, Nausea, Vomiting, Diarrhea Past Medical History Reviewed: Historical Data, Nursing Documentation, Vital Signs Vital Signs: Last Vital Signs Temp 98.8 F 02/28/19 11:15 Pulse 90 02/28/19 11:15 Resp 18 02/28/19 11:15 BP 153/87 H 02/28/19 11:15 Pulse Ox 98 02/28/19 11:15 Primary Care Provider: Non [facility] Provider, - Medical History PMH: Kidney Stones, Chronic Kidney Disease Denies: Diabetes Family History: Denies: [place], Hypertension - Social History Hx Tobacco Use: Yes Hx Alcohol Use: No Hx Substance Use: Yes - Immunization History Hx Tetanus Toxoid Vaccination: No Hx Influenza Vaccination: No Hx Pneumococcal Vaccination: No Review Of Systems Constitutional: Negative for: Fever, Chills, Sweats Eyes: Negative for: Pain, Vision Change ENT: Negative for: Ear Pain, Ear Discharge, Nose Pain Cardiovascular: Negative for: Chest Pain, Palpitations, Edema Respiratory: Negative for: Cough, Shortness of Breath, Sputum Gastrointestinal: Negative for: Nausea, Vomiting, Abdominal Pain, Diarrhea, Constipation, Melena, Hematochezia Genitourinary: Positive for: Dysuria. Negative for: Hematuria Musculoskeletal: Positive for: Back Pain (left flank pain ). Negative for: Neck Pain Skin: Negative for: Rash Neurological: Negative for: Weakness, Numbness Physical Exam - Physical Exam Appears: Well, Non-toxic, No Acute Distress Skin: Warm, Dry Head: Atraumatic, Normacephalic Eye(s): bilateral: Normal Inspection, PERRL, EOMI Oral Mucosa: Moist Neck: Normal ROM, Trachea Midline, Supple, No Other ( meningeal signs- negative kernig's and brudzinskis) Chest: Symmetrical, No Deformity, No Tenderness Cardiovascular: Rhythm Regular, No Friction Rub Respiratory: No Rales, No Rhonchi, No Wheezing Gastrointestinal/Abdominal: Normal Exam, Soft, No Tenderness, No Distention Back: CVA Tenderness (left sided), No Vertebral Tenderness, No Paraspinal Tenderness Extremity: Capillary Refill (<2 seconds) Extremity: Bilateral: Atraumatic, Normal Color And Temperature, Normal ROM Pulses: Left Dorsalis Pedis: Normal, Right Dorsalis Pedis: Normal Neurological/Psych: Oriented x3, Normal Speech, Normal Cognition, Normal Motor Gait: Steady ED Course And Treatment - Laboratory Results Result Diagrams: 02/28/19 13:18 02/28/19 13:18 O2 Sat by Pulse Oximetry: 98 (in RA) Pulse Ox Interpretation: Normal - CT Scan/US Abdomen/Pelvis CT Other Rad Studies (CT/US): Interpreted By Me, Read By Radiologist CT/US Interpretation: IMPRESSION: In situ left ureteral stent with persistent approximately 9 mm calculus in the mid to distal left ureter with surrounding periureteric. There is there is mild persistent but improved proximal left ureteral dilatation. Splenomegaly. Mild hepatomegaly. 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 Note that there is a increased incidence of gallbladder carcinoma in cases of porcelain gallbladder and therefore surgical consultation for this reason is recommended. Medical Decision Making Medical Decision Making: Impression: 58 year old male with PMHx of recent stent placement for kidney stones and CKD presents to ED with complaint of left flank pain associated with burning urination. Initial Plan: Abdomen/Pelvis CT CMP CBC UA blood culture urine culture IV fluids MDM: infection vs retained stone 1244: Left message for Dr. Mahoney 1310: Spoke with Dr. Mahoney. Patient to be given Macrobid BID and have pre-op labs done. Admit to medicine. Abdomen/Pelvis CT: In situ left ureteral stent with persistent approximately 9 mm calculus in the mid to distal left ureter with surrounding periureteric. There is there is mild persistent but improved proximal left ureteral dilatation. Splenomegaly. Mild hepatomegaly. 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 Note that there is a increased incidence of gallbladder carcinoma in cases of porcelain gallbladder and therefore surgical consultation for this reason is recommended. 1446 appreciate consult w/ Dr. Huffman: to admit to her service, we are to place order consult to DR. Maru Lozada surgical assistant certified regarding porcelain gallbladder Disposition - Disposition Disposition: ELOPEMENT - ER ONLY Disposition Time: 14:46 Condition: STABLE Forms: [employer] Connect (Cuban) - Clinical Impression Clinical Impression: Nephrolithiasis - Scribe Statement The provider has reviewed the documentation as recorded by the Scribe (Rosario Quiroz) All medical record entries made by the Scribe were at my direction and personally dictated by me. I have reviewed the chart and agree that the record accurately reflects my personal performance of the history, physical exam, medical decision making, and the department course for this patient. I have also personally directed, reviewed, and agree with the discharge instructions and disposition.
[2019-02-28 12:10] LABS: URINE BACTERIA RARE (<OCC); URINE BILIRUBIN NEGATIVE (NEGATIVE); URINE BLOOD 1+ (NEGATIVE); URINE CLARITY Clear (Clear); URINE COLOR Yellow (YELLOW); URINE GLUCOSE (UA) NORMAL (Normal); URINE LEUKOCYTE ESTERASE 2+ Leu/uL (Negative); URINE PROTEIN 1+ mg/dL (NEGATIVE); URINE UROBILINOGEN NORMAL mg/dL (0.2-1.0)
[2019-02-28] MEDS ORDERED: Sodium Chloride 0.9% 1,000 ML IV SCH (12:45)
[2019-02-28 13:23] LABS: BASO % 0.8 % (0.0-2.0); EOS # 0.1 K/uL (0.0-0.7); EOS % 2.2 % (0.0-4.0); HEMOGLOBIN 13.3 g/dL (12.0-18.0); LYMPH # 1.5 K/uL (1.0-4.3); LYMPH % 29.8 % (20.0-40.0); MEAN CELL VOLUME 88.6 fL (80.0-94.0); MEAN CORPUSCULAR HEMOGLOBIN 30.8 pg (27.0-31.0); MEAN CORPUSCULAR HGB CONC 34.7 g/dL (33.0-37.0); MEAN PLATELET VOLUME 8.2 fL (7.2-11.7); MONO # 0.4 K/uL (0.0-0.8); MONO % 8.3 % (0.0-10.0); NEUT % 58.9 % (50.0-75.0); NRBC % 0.1 % (0.0-2.0); RBC 4.31 Mil/uL (4.40-5.90); WHITE BLOOD COUNT 5.1 K/uL (4.8-10.8)
[2019-02-28 13:35] LABS: ALB/GLOB RATIO 0.9 (1.0-2.1); ALBUMIN 4.2 g/dL (3.5-5.0); ALT/SGPT 48 U/L (21-72); AST/SGOT 51 U/L (17-59); BLOOD UREA NITROGEN 15 mg/dL (9-20); GFR NON-AFRICAN AMERICAN > 60
--- NOTE | 2019-02-28 13:41 | CT ---
Date of service: 02/28/2019 PROCEDURE: CT abdomen and pelvis HISTORY: Stent COMPARISON: Comparison made with prior CT scan of the abdomen pelvis 02/21/2019. TECHNIQUE: Contiguous axial images of the abdomen and pelvis performed without oral or intravenous contrast material. Additional 2D sagittal and coronal reformats generated. Radiation dose: Total exam DLP = 1119.09 mGy-cm. This CT exam was performed using one or more of the following dose reduction techniques: Automated exposure control, adjustment of the mA and/or kV according to patient size, and/or use of iterative reconstruction technique. FINDINGS: LOWER THORAX: Heart size within range of normal. No significant pericardial effusion. Small hiatal hernia with mild wall thickening of the distal esophagus likely due to protrusion gastric mucosa however esophagitis or other intrinsic/invasive wall lesion not excluded. No evidence of effusion or basilar pneumothorax. No focal consolidation LIVER: Liver is mildly enlarged measuring over 19 cm in cc dimension. No obvious hepatic mass or collection. GALLBLADDER AND BILE DUCTS: . 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 Note that there is a increased incidence of gallbladder carcinoma in patients with a findings of porcelain gallbladder. PANCREAS: Unremarkable. No mass. No ductal dilatation. SPLEEN: Spleen is enlarged measuring over 16 cm in AP dimension. ADRENALS: No adrenal lesions are identified KIDNEYS AND URETERS: Interval placement left ureteral stent. There is a 9 mm calculus seen within the mid to lower left ureter abutting the ureteral stent.. Proximal left ureter exhibits some minimal dilatation. There are induration and infiltration changes about the left ureter at the level of the calculus. BLADDER: Distal aspect of the left ureteral stent the urinary bladder is physiologically distended. No evidence of intraluminal urinary bladder calculi. Note the distal aspect of a left ureteral stent is present within the urinary bladder lumen. REPRODUCTIVE: Unremarkable. APPENDIX: Normal appendix. BOWEL: Evaluation of the bowel is somewhat limited due to the lack of oral contrast material. The stomach is incompletely distended. Visualized loops of small bowel exhibit normal contour and caliber. No evidence of acute mechanical small bowel obstruction. Stool and air seen throughout the large bowel. PERITONEUM: Unremarkable. No fluid collection. No free air. LYMPH NODES: Unremarkable. No enlarged lymph nodes. VASCULATURE: Unremarkable. No aortic aneurysm. Minor aortic atherosclerotic calcification or mural plaque present. BONES: Mild multilevel degenerative spondylosis of the lower thoracic and lumbar spine. OTHER FINDINGS: None. IMPRESSION: In situ left ureteral stent with persistent approximately 9 mm calculus in the mid to distal left ureter with surrounding periureteric. There is there is mild persistent but improved proximal left ureteral dilatation. Splenomegaly. Mild hepatomegaly. 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 Note that there is a increased incidence of gallbladder carcinoma in cases of porcelain gallbladder and therefore surgical consultation for this reason is recommended.
[2019-02-28] MEDS ORDERED: Sodium Chloride 0.9% 1,000 ML ONE (14:01)
[2019-03-01] MEDS ORDERED: METHADONE HYDROCHLORIDE PO SCH ×2 (10:00)
== END 2019-02-28 15:45 | disposition left against medical advice (07) ==
LOC: C.ER 10:55 → C.9E 14:43 → UNDOADMIN 14:43 → UNDODISIN 15:44
DX: N20.0 Calculus of kidney (principal); N18.9 Chronic kidney disease, unspecified
CPT/HCPCS: 74176; 80053; 81001; 85025; 87040; 96360; 99284; J7030